=== PATIENT | female | born 1995 | race Caucasian/White ===

== ENCOUNTER 2024-05-17 16:24 | Emergency (ER) | payer MEDICAID ==
[~2024-05-17] VITALS: Ht 170.2 cm; Wt 73.0 kg
[2024-05-17] MEDS ORDERED: DIPH25CA83 PO (17:10)
[2024-05-17] MEDS ORDERED: AMOX500C2 PO (17:10)
[2024-05-17] MEDS: amoxicillin 250mg capsule PO ONE (17:22)
[2024-05-17] MEDS: diphenhydrAMINE 25mg capsule PO ONE (17:22)
[2024-05-17] MEDS ORDERED: CLOT45CR32 TOP (17:26)
[2024-05-17 17:29] VITALS: BP 121/76; PULSE 86; RESP 18; TEMP 98.6; O2SAT 100
== END 2024-05-17 17:32 | disposition home or self-care (01) ==
LOC: ER 16:25
DX: O26.892 Other specified pregnancy related conditions, second trimester (principal); S80.861A Insect bite (nonvenomous), right lower leg, initial encounter; Z79.899 Other long term (current) drug therapy; Z79.2 Long term (current) use of antibiotics; W57.XXXA Bitten or stung by nonvenomous insect and other nonvenomous arthropods, initial encounter; Y93.89 Activity, other specified; Y92.89 Other specified places as the place of occurrence of the external cause; Y99.8 Other external cause status; Z3A.18 18 weeks gestation of pregnancy
CPT/HCPCS: 99283; Q0163